=== PATIENT | male | born 1985 | race African-American/Black ===

== ENCOUNTER 2019-11-29 14:25 | Emergency (ER) | payer OTHER ==
[~2019-11-29] VITALS: Ht 182.9 cm; Wt 99.8 kg
[2019-11-29 16:15] VITALS: BP 120/76
== END 2019-11-29 16:15 | disposition home or self-care (01) ==
LOC: ER 14:25
DX: B34.9 Viral infection, unspecified (principal); R05 Cough; Z20.828 Contact with and (suspected) exposure to other viral communicable diseases